=== PATIENT | female | born 1990 | race Caucasian/White ===

== ENCOUNTER → 2018-05-10 05:37 | Day surgery (SDC) | payer OTHER ==
[~2018-05-10 05:37] MED LIST: Acetaminophen ADULT LIQ* 650 MG/20.3 ML UDC ONE; Acetaminophen TAB* 325 MG ONE; Acetaminophen TAB* 325 MG PO ONE; Acetaminophen TAB* 325 MG PO PRN; Buffered Lidocaine 1% SYRIN* 1 ML/SYRINGE INTRADERM ONE; Cisatracurium* 2 MG/ML MDV 5 ML ONE; Dexamethasone IV* 4 MG/ML 1 ML (4 MG) ONE; DiMENhydriNATE IV* 50 MG/ML VIAL IV PUSH PRN; Famotidine IV* 10 MG/ML 2 ML (20 mg) IV ONE; Famotidine IV* 10 MG/ML 2 ML (20 mg) ONE; Gabapentin CAP(*) 300 MG ONE; Gabapentin CAP(*) 300 MG PO ONE; HYDROcodone/ACETAMIN 5-325 MG* 1 TAB ONE; HYDROcodone/ACETAMIN 5-325 MG* 1 TAB PO PRN; Ibuprofen TAB* 400 MG PO PRN; Lactated Ringers 1000 ML Bag* 1,000 ML IV SCH; Lidocain 1% EPI 1:100,000 * 30 ML MDV ONE; Midazolam* 1 MG/ML 2 ML VIAL (2 MG) ONE; Naloxone* 0.4 MG/ML 1 ML VIAL IV PRN; Ondansetron INJ* 2 MG/ML VIAL IM PRN; Ondansetron INJ* 2 MG/ML VIAL IV PRN; Ondansetron INJ* 2 MG/ML VIAL ONE; Ondansetron ODT TAB* 4 MG PO PRN; PROCHLORPERAZINE INJ 5 MG/ML 2 ML VIAL IV PRN; Propofol* 10 MG/ML 20 ML BTL ONE; Scopolamine 1.5 mg* PATCH TRANSDERM PRN; Scopolamine PATCH Remove* 1 NOTE MISC PATCH OFF ONE; Succinylcholine* 20 MG/ML 10 ML VIAL ONE; diPHENhydraMINE IV* 50 MG/ML 1 ml VIAL (BENADRYL) IV PRN; fentaNYL* 50 MCG/ML 2 ML VIAL (100 MCG VIAL) IV PRN; fentaNYL* 50 MCG/ML 2 ML VIAL (100 MCG VIAL) ONE; oxyCODONE ORAL.SOLN* 5 MG/5 ML UDC ONE; oxyCODONE ORAL.SOLN* 5 MG/5 ML UDC PO PRN
[2018-05-10] MEDS: fentaNYL* 50 MCG/ML 2 ML VIAL (100 MCG VIAL) IV PRN ×3 (10:09→11:49)
--- NOTE | 2018-05-10 11:24 | OP ---
DATE OF OPERATION: 05/10/18 - [facility] DATE OF : 89 SURGEON: Adal Baptiste MD. VALIDATION ENGINEER: Lul Adame MD. ANESTHESIA: General. PRE-OP DIAGNOSIS: Right thyroid nodule. POST-OP DIAGNOSIS: Right thyroid nodule. OPERATIVE PROCEDURE: Right thyroid lobectomy. SPECIMEN: Right thyroid lobe. ESTIMATED BLOOD LOSS: Less than 30 cc. COMPLICATIONS: None. INDICATION: This is a 27-year-old woman who has had a benign, but rapidly enlarging, right thyroid nodule of approximately 4 cm in diameter. It has become uncomfortable, particularly while the patient is lying down and has also created some degree of dysphagia. The decision was made to remove it. DESCRIPTION OF PROCEDURE: On 05/10/18, the patient was brought to the operating room, general anesthesia was induced, and a NIM endotracheal tube was placed. Accurate placement was confirmed both visually using a GlideScope and then subsequently, once the monitor was hooked up, by tapping both sides of the neck. The patient was positioned with arms tucked on a shoulder roll. The intended incision site was marked and it was infiltrated with approximately 6 cc of 1% lidocaine with epinephrine following cleansing with alcohol. The neck was then prepped with Betadine. The patient was draped in a sterile fashion. A time-out was performed. A 15-blade was used to make a 5 cm horizontal incision low in the anterior neck. The subcutaneous fat and platysma were divided with Bovie cautery. Subplatysmal flaps were raised superiorly and inferiorly. The Sampson self- retaining retractor was then placed and strap muscles were divided vertically in the midline to expose the right hemithyroid. The isthmus was divided first. The anterior tracheal wall was palpated. Pretracheal fascia was divided superiorly and inferiorly to the isthmus and the isthmus was divided with the LigaSure device. Attention was then turned to the right superior pole. The vascular pedicle was identified, ligated with hemoclips, and divided with the LigaSure device. Once the superior pole was mobilized and its blood supply controlled, attention was then turned inferiorly. Tracheoesophageal groove was explored. The recurrent laryngeal nerve was identified in the tracheoesophageal groove. It was both visually confirmed as well as confirmed with stimulator. It was used as a landmark to guide more superior dissection. Inferior vascular blood supply of the gland was ligated close to the gland in an effort to preserve parathyroid tissue. At least 1 candidate parathyroid was seen during this dissection and preserved with its blood supply intact. More laterally, the middle thyroid vasculature was ligated with the hemoclip and divided with LigaSure device. Gentle dissection of the gland reflecting it off of the underlying soft tissue was under-taken with bipolar cautery and scissor. The gland was mobilized up to Meredith's ligament. Meredith's ligament was divided and a small cuff of thyroid tissue was left present overlying the recurrent laryngeal nerve at its insertion point into the cricothyroid muscle. Once the specimen was out, the wound was irrigated. The nerve was confirmed to be intact both visually and again was stimulated with good robust response. A few small areas of oozing were easily controlled with bipolar forceps and a small piece of Surgicel was placed in the region of the Meredith's ligament. The wound was then closed in layers. Strap muscles were reapproximated with 3-0 Vicryl. The platysma was closed with 3-0 Vicryl and skin was closed with 4-0 nylon using a running subcuticular stitch. Final layer of closure was accomplished with Steri-Strips and Mastisol. The patient was then extubated without difficulty, delivered to the PACU in stable condition. [id number]/[facility] #: [id number] BLAKE
[2018-05-10 12:19] VITALS: BP 133/85
== END | disposition home or self-care (01) ==
LOC: OR 05:37
PROVIDERS: ATTEND Otolaryngology
DX: C73 Malignant neoplasm of thyroid gland (principal)
CPT/HCPCS: 81025; 88307; A9270-GY; J0330; J1100; J2250; J2405; J2704; J3010

== ENCOUNTER 2018-05-24 12:02 | Day surgery (SDC) | payer OTHER ==
[~2018-05-24 12:02] MED LIST changes: -Acetaminophen ADULT LIQ* 650 MG/20.3 ML UDC ONE; -Acetaminophen TAB* 325 MG ONE; -Acetaminophen TAB* 325 MG PO PRN; -Cisatracurium* 2 MG/ML MDV 5 ML ONE; -Dexamethasone IV* 4 MG/ML 1 ML (4 MG) ONE; -DiMENhydriNATE IV* 50 MG/ML VIAL IV PUSH PRN; -Famotidine IV* 10 MG/ML 2 ML (20 mg) IV ONE; -Famotidine IV* 10 MG/ML 2 ML (20 mg) ONE; -Gabapentin CAP(*) 300 MG ONE; -HYDROcodone/ACETAMIN 5-325 MG* 1 TAB ONE; -HYDROcodone/ACETAMIN 5-325 MG* 1 TAB PO PRN; -Ibuprofen TAB* 400 MG PO PRN; -Lidocain 1% EPI 1:100,000 * 30 ML MDV ONE; -Midazolam* 1 MG/ML 2 ML VIAL (2 MG) ONE; -Naloxone* 0.4 MG/ML 1 ML VIAL IV PRN; -Ondansetron INJ* 2 MG/ML VIAL IM PRN; -Ondansetron INJ* 2 MG/ML VIAL IV PRN; -Ondansetron INJ* 2 MG/ML VIAL ONE; -Ondansetron ODT TAB* 4 MG PO PRN; -PROCHLORPERAZINE INJ 5 MG/ML 2 ML VIAL IV PRN; -Propofol* 10 MG/ML 20 ML BTL ONE; -Scopolamine 1.5 mg* PATCH TRANSDERM PRN; -Scopolamine PATCH Remove* 1 NOTE MISC PATCH OFF ONE; -Succinylcholine* 20 MG/ML 10 ML VIAL ONE; -diPHENhydraMINE IV* 50 MG/ML 1 ml VIAL (BENADRYL) IV PRN; -fentaNYL* 50 MCG/ML 2 ML VIAL (100 MCG VIAL) IV PRN; -fentaNYL* 50 MCG/ML 2 ML VIAL (100 MCG VIAL) ONE; -oxyCODONE ORAL.SOLN* 5 MG/5 ML UDC ONE; -oxyCODONE ORAL.SOLN* 5 MG/5 ML UDC PO PRN
[2018-05-24] MEDS ORDERED: Gabapentin CAP(*) 300 MG ONE (12:31)
[2018-05-24] MEDS ORDERED: Buffered Lidocaine 1% SYRIN* 1 ML/SYRINGE INTRADERM ONE (12:31)
[2018-05-24] MEDS ORDERED: Acetaminophen TAB* 325 MG ONE (12:33)
[2018-05-24] MEDS ORDERED: fentaNYL* 50 MCG/ML 2 ML VIAL (100 MCG VIAL) ONE ×2 (14:18→17:20)
[2018-05-24] MEDS ORDERED: Midazolam* 1 MG/ML 2 ML VIAL (2 MG) ONE (14:19)
[2018-05-24] MEDS ORDERED: Lidocain 1% EPI 1:100,000 * 30 ML MDV ONE (15:01)
[2018-05-24] MEDS ORDERED: Famotidine IV* 10 MG/ML 2 ML (20 mg) ONE (15:06)
[2018-05-24] MEDS ORDERED: Succinylcholine* 20 MG/ML 10 ML VIAL ONE (15:23)
[2018-05-24] MEDS ORDERED: Dexamethasone IV* 4 MG/ML 1 ML (4 MG) ONE (15:23)
[2018-05-24] MEDS ORDERED: Cisatracurium* 2 MG/ML MDV 5 ML ONE (15:23)
[2018-05-24] MEDS ORDERED: Ondansetron INJ* 2 MG/ML VIAL ONE (15:23)
[2018-05-24] MEDS ORDERED: Propofol* 10 MG/ML 20 ML BTL ONE (15:23)
[2018-05-24] MEDS ORDERED: HYDROmorphone INJ1* 1 MG/ML SYRINGE ONE (15:36)
[2018-05-24] MEDS ORDERED: Scopolamine 1.5 mg* PATCH TRANSDERM PRN (15:55)
[2018-05-24] MEDS ORDERED: HYDROmorphone INJ1* 1 MG/ML SYRINGE IV PRN (15:55)
[2018-05-24] MEDS ORDERED: fentaNYL* 50 MCG/ML 2 ML VIAL (100 MCG VIAL) IV PRN (15:55)
[2018-05-24] MEDS ORDERED: HYDROcodone/ACETAMIN 5-325 MG* 1 TAB PO PRN ×2 (15:55)
[2018-05-24] MEDS ORDERED: PROCHLORPERAZINE INJ 5 MG/ML 2 ML VIAL IV PRN (15:55)
[2018-05-24] MEDS ORDERED: Acetaminophen TAB* 325 MG PO PRN (15:55)
[2018-05-24] MEDS ORDERED: Levalbuterol 0.63MG/3ML NEB* UNIT OF USE INH PRN (15:55)
[2018-05-24] MEDS ORDERED: diPHENhydraMINE IV* 50 MG/ML 1 ml VIAL (BENADRYL) IV PRN (15:55)
[2018-05-24] MEDS ORDERED: Naloxone* 0.4 MG/ML 1 ML VIAL IV PRN (15:55)
[2018-05-24] MEDS ORDERED: DiMENhydriNATE IV* 50 MG/ML VIAL IV PUSH PRN (15:55)
[2018-05-24 19:01] VITALS: BP 119/67
--- NOTE | 2018-05-24 21:32 | OP ---
CANCELED DICTATION [id number]/[facility] #: [id number] MTDD
--- NOTE | 2018-05-25 01:59 | OP ---
OPERATIVE REPORT: DATE OF OPERATION: 05/24/18 - [facility] DATE OF : 89 ATTENDING SURGEON: Adal Baptiste MD HUNTER GUIDE: Lul Adame MD ANESTHESIOLOGIST: Tevin Begum MD ANESTHESIA: General. PRE-OP DIAGNOSIS: Malignant neoplasm of thyroid gland. POST-OP DIAGNOSIS: Malignant neoplasm of thyroid gland. OPERATIVE PROCEDURE: Left thyroid lobectomy. ESTIMATED BLOOD LOSS: Less than 30 cc. SPECIMEN: Left lobe of thyroid to Pathology. DESCRIPTION OF PROCEDURE: This is a 27-year-old woman who had a very large symptomatic nodule in the right lobe of the thyroid. Fine needle aspiration was felt to be benign because of the symptomatic nature. We decided to perform a right thyroid lobectomy that was about 2 weeks ago. 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 Today, the patient was brought back to the operative room. General anesthesia was induced and a NIM's oral endotracheal tube was placed. Appropriate positioning was confirmed with GlideScope. The monitor was found to be in good working order. The patient's neck was marked, infiltrated with approximately 4 cc of 1% lidocaine with 1:100,000 epinephrine and prepped with Betadine. The patient was then draped sterilely and a time-out was performed. The previous incision was excised with a 15-blade. Dissection was undertaken through the subcutaneous fat and platysma. Once the platysma was encountered, there was significant amount of inflammation present because of the prior surgery. Subplatysmal flaps were elevated superiorly and inferiorly and Sampson self-retainer was placed. The strap muscles were then divided longitudinally along the median raphe and the left lobe of the thyroid was exposed. Attention was turned superiorly initially where the superior vascular pedicle was identified, ligated with hemoclips, and divided with a LigaSure device. Once the superior pole was controlled, attention was turned inferiorly. The anterior face of the trachea was skeletonized. The inferior edge of the isthmus remnant was identified and mobilized and the inferior pole region was explored. Inferior pole vasculature was identified and ligated with hemoclips and bipolar cautery as close to the gland as possible. The tracheoesophageal groove was explored. The recurrent laryngeal nerve was identified. It was positively identified with a nerve stimulator and used as a landmark to guide dissection superiorly. Middle thyroid vein was identified, ligated with hemoclips and divided as well. The perithyroidal tissue was gently dissected away from the thyroid gland and dissection was attempted to be as close to thyroid capsule as possible in an effort to preserve parathyroid tissue, which was very difficult to visualize because of the degree of inflammation from the recent prior surgery. Definitive parathyroid tissue was not identified visually, but none was seen on the specimen. Once the specimen was removed, the wound was irrigated copiously. A few small areas of oozing were controlled with bipolar device. The nerve was stimulated once more and found to be conducting well. A small piece of Surgicel was placed adjacent to the small piece of thyroid tissue still adherent to various ligament at the insertion point of the nerve and Valsalva was performed. There was no active bleeding. The strap muscles were then reapproximated with 3-0 Vicryl as was the platysma. Skin was then closed with a 4-0 Prolene using a running subcuticular stitch. Final layer of Mastisol and Steri-Strips were applied. The patient was then extubated without difficulty and returned to the PACU in stable condition. [id number]/[facility] #: [id number] BLAKE
[2018-05-27] MEDS ORDERED: Scopolamine PATCH Remove* 1 NOTE MISC PATCH OFF ONE (15:59)
== END 2018-05-24 19:02 | disposition home or self-care (01) ==
LOC: OR 12:02
PROVIDERS: ATTEND Otolaryngology
DX: C73 Malignant neoplasm of thyroid gland (principal)
CPT/HCPCS: 81025; 88307; A9270-GY; J0330; J1100; J1170; J2250; J2405; J2704; J3010